=== PATIENT | male | born 1965 | race Caucasian/White ===

== ENCOUNTER 2019-10-25 00:20 | Day surgery (SDC) | payer OTHER, SELFPAY ==
[2019-09-28 08:37] VITALS: BP 158/90; PULSE 79; RESP 18; TEMP 36.8; O2SAT 98; BMI 38.9
[2019-10-25] VITALS (12 sets, daily range): BP systolic 104–171; BP diastolic 56–101; PULSE 71–84; RESP 13–20; TEMP 36.2–37.2; O2SAT 94–100; BMI 40.1
--- NOTE | ~2019-10-25 | XR_ITS ---
EXAMINATION: XR knee LT 2V DATE: 10/25/2019 11:16 INDICATION: Total left knee arthroplasty. Postop. TECHNIQUE: 2 views of left knee were obtained. COMPARISON: Left knee radiographs 11/19/2018 FINDINGS: There is a total left knee arthroplasty with patellar resurfacing in near-anatomic alignmen t. No fracture. There is gas in the knee joint and soft tissues, consistent with recent surgery. IMPRESSION: 1. Total left knee arthroplasty in near-anatomic alignment. Reviewed, dictated and finalized at location A. R [facility]
[2019-10-25] MEDS: LACTATED RINGERS 1,000 ML 30 ML IV CONT ×2 (06:45→11:03)
--- NOTE | 2019-10-25 07:28 | WPDANESEPPF ---
Anes - Initial Pre Proc Eval Procedure: Operation Date: 10/25/19 08:30 Proposed Procedures p Total Left Knee Arthroplasty(Left) - Ammon Becker MD Date/Time: 10/25/19 07:28 Surgeon: Ammon Becker MD Pre Op Diagnosis: Left Knee OA Patient Data Age: 54 Gender: M Height: 1.78 m Weight: 123.2 kg Last Vital Signs Temp 37.0 C 10/25/19 06:58 Pulse 71 10/25/19 06:58 Resp 20 10/25/19 06:58 BP 171/91 H 10/25/19 06:58 Pulse Ox 98 10/25/19 06:58 Allergies Allergy/AdvReac Type Severity Reaction Status Date / Time grass pollen Allergy Unknown Verified 10/25/19 06:54 mold Allergy Unknown Verified 10/25/19 06:54 Home Medications Medication Instructions Recorded Confirmed Type ibuprofen 400 mg PO Q6H PRN 09/28/19 10/25/19 History Patient hx anesthesia problems: none Family hx anesthesia problems: none [facility] Past Medical History Medical History (Updated 10/24/19 @ 11:28 by Irving Garza DO) Localized osteoarthritis of left knee Social History Social History (Updated 10/25/19 @ 07:28 by Irving Garza DO) Social History: 4-5 beers/day Smoking status: Never smoker Alcohol intake: current Gender identity (if verbalized by the patient): Male Anes - Eval Final PreProcedure Day of Procedure 10/25/19 07:28 Patient weight: obese Heart: regular rate and rhythm Lungs: clear to auscultation and normal air movement Airway: Mallampati scale class II Neurological: alert and oriented Last oral intake: >/= 8 hours ASA classification: III Emergent: no Anesthetic plan: proceed Anesthesia type and monitoring: general LMA and standard monitoring Informed Consent: The patient's anesthetic plan and its attendant risks and benefits were discussed with the patient/family/POA. Questions were solicited and answers provided to the satisfaction of the patient/family/POA.
--- NOTE | 2019-10-25 07:29 | WPDANESPNB ---
Anes - Peripheral Nerve Block Date/Time: 10/25/19 07:29 I have discussed with the patient/family/POA the placement of a peripheral nerve block for post-operative pain management, including associated risks, benefits, complications, and side effects. Alternative methods of post-operative analgesia were detailed. Questions were solicited and answers provided to the satisfaction of the patient/family/POA. Time-Out: A pre-procedural Time-Out was completed immediately before starting the procedure and confirmed: Patient Identification, Site, Procedure, Patient Position and the Availability of Requisite Equipment. Clinical Indications: Acute post-operative pain management requested by the operative surgeon. Nerve Block Insertion Note Anes-nerve block: adductor canal left Patient position: supine Skin prep: chlorhexidine Needle: 22 gauge, stimulating, insulated echogenic needle. Needle length: 80 mm Technique: ultrasound Injectate: bupivacaine 0.5% with epi 5 mcg/ml (30cc) Observations: tolerated well Complications: none Procedure start time:: 814 Procedure end time:: 817
--- NOTE | 2019-10-25 07:51 | WPDHPUPDATE1 ---
History and Physical Update Update Date/Time: 10/25/19 07:51 History and Physical has been reviewed, including an updated exam of the patient. There are NO changes in the patient's condition. Risks, benefits, and alternatives have been discussed and questions answered. Patient agrees to proceed with procedure.
[2019-10-25] MEDS: ceFAZolin 3 GM/D5W 100 ML 100 ML IVPB (08:24)
--- NOTE | 2019-10-25 11:30 | PM.PROC ---
Procedure Note - Detailed Date of procedure: 10/25/19 Pre-op diagnosis: Left Knee OA Post-op diagnosis: same Procedure performed: Total knee arthroplasty, left Implants: [place] [employer] size 6 press-fit femur, size 6 Tritanium press fit tibia, 9mm CS X3, polyethylene insert, 38 mm asymmetric Tritanium metal backed patellar component. Anesthesia: GETA and regional (subsartorial nerve block) Surgeon: Ammon Becker MD Estimated blood loss (mL): 200 Drains: No Complications: None Findings: Degenerative changes were diffuse. Bone quality was excellent. Typical femoral cuts were taken with 3? external rotation at 5? valgus. Flexion gap was slightly tight with rollback limited and a slight release of the PCL was performed off of the femur. OPERATIVE DETAILS: The patient was given a nerve block preoperatively, and then brought to the operating room. A general anesthetic was administered. The leg was prepped and draped in the usual sterile fashion. The limb was elevated and the tourniquet inflated to 300 mmHg during initial exposure. A longitudinal incision was created along the medial border of the patella and patellar tendon, and standard medial parapatellar approach to the knee was performed. A moderate medial release was taken. The knee was then flexed. The osteophytes were carefully removed. The intramedullary guide was placed in the femoral canal. The distal femoral resection was then taken with the oscillating saw. The collateral ligaments were carefully protected. The tibia was carefully exposed. The jig was applied, and the proximal tibia was resected at 3 degrees according to preoperative plan. The knee was balanced in extension. Appropriate releases were taken where needed. The anterior cruciate ligament and meniscal remnants were removed. The posterior cruciate ligament was preserved. The patella was measured. Patellar resection was carried out with the oscillating saw. The lug holes drilled. The femur was sized and rotation assessed using a combination of gap balancing, posterior referencing, and the AP axis. The 4 in 1 cutting block was used to finish the femoral cuts after equal gaps were assured. The lug holes were drilled. The osteophytes were carefully removed from the back of the knee. The knee was copiously irrigated periodically throughout the procedure. The meniscal remnants were removed. The spacer block was used to confirm equal flexion and extension gaps. Further releases were performed as needed. The tibia was sized and broached. The bony surfaces were prepared for cementing with pulsatile lavage. The real tibial component was impacted into position followed by press fitting the femoral component. The patella component was press-fit. Patellar tracking was carefully assessed. No additional releases were required. The wound was closed with #1 Vycril suture, #2 Quill suture, 0-Quill suture, and 2-0 Quill suture followed by Steri-Strips. A sterile bulky dressing was applied. Meticulous hemostasis was maintained throughout the procedure. [The aquamantis device was utilized.] There were no complications. The patient was extubated and brought to the recovery room in stable condition after the application of sterile dressing with Amaury bandage.
--- NOTE | 2019-10-25 12:08 | ADMGEN ---
This patient, Doni Estrada, was admitted to -. Patient/family oriented to hospital policies and general routines including ID bracelet, bed and alarms, visiting hours, pain management, procedures, bathroom and other care routines, personal items, smoking policy, room service/diet, and visiting hours. Valuables list has been completed. Information on how to activate the Rapid Response Team has been discussed. Patient/Family are encouraged to report perceived risks to care and to ask questions if they do not understand what they are told or what they should do.
[2019-10-25] MEDS: SODIUM CHLORIDE 0.9% IV 1,000 ML 125 ML IV CONT (12:40)
--- NOTE | 2019-10-25 12:57 | ADMGEN ---
This patient, Doni Estrada, was admitted to [facility] Room 311-01. Patient/family oriented to hospital policies and general routines including ID bracelet, bed and alarms, visiting hours, pain management, procedures, bathroom and other care routines, personal items, smoking policy, room service/diet, and visiting hours. Valuables list has been completed. Information on how to activate the Rapid Response Team has been discussed. Patient/Family are encouraged to report perceived risks to care and to ask questions if they do not understand what they are told or what they should do.
[2019-10-25] MEDS: ceFAZolin 2 GM/D5W 50 ML 2 GM/50 ML BAG IVPB (16:05)
[2019-10-25] MEDS: DOCUSATE SODIUM 100 MG CAPSULE PO (16:49)
[2019-10-25] MEDS: TRANEXAMIC ACID 1,000 MG in SODIUM CHLORIDE 0.9% IV 50 ML 360 MG IV PUSH (18:09)
[2019-10-25] MEDS: ASPIRIN 325 MG ENTERIC TABLET PO (20:39)
[2019-10-25] MEDS: FAMOTIDINE 20 MG TABLET PO (20:41)
[2019-10-26] MEDS: ceFAZolin 2 GM/D5W 50 ML 2 GM/50 ML BAG IVPB ×2 (00:07→08:36)
[2019-10-26 02:00] VITALS: BP 121/74; PULSE 82; RESP 20; TEMP 36.9; O2SAT 96
[2019-10-26 06:00] VITALS: BP 136/78; PULSE 72; RESP 20; TEMP 36.5; O2SAT 94
[2019-10-26 06:20] LABS: Basophils Percent Auto 0.1 % (0.2-1.2); Eosinophils Percent Auto 0.1 % (0-4.4); Hematocrit 39.1 % (42.0-52.0); Hemoglobin 13.1 g/dL (14.0-18.0); Immature Granulocyte Absolute 0.08 K/mm3 (0.00-0.031); Immature Granulocyte Percent A 0.5 % (0-0.5); Lymphocytes Absolute Auto 2.02 K/mm3 (0.9-3.2); Lymphocytes Percent Auto 13.6 % (18.3-44.2); Mean Corpuscular HGB Conc 33.5 g/dl (32-36); Mean Corpuscular Volume 92.4 fl (80-100); Mean Platelet Volume 11.4 fl (7.4-10.4); Monocytes Absolute Auto 1.2 K/mm3 (0.1-0.6); Monocytes Percent Auto 7.8 % (2.6-8.5); Neutrophils Absolute Auto 11.6 K/mm3 (1.3-6.7); Neutrophils Percent Auto 77.9 % (45.5-73.1); Platelet Count Result 182 k/mm3 (150-375); Red Blood Count 4.23 M/mm3 (4.6-6.20); Red Cell Distribution Width 12.4 % (11.5-14.5); White Blood Count 14.8 K/mm3 (4.5-10.0)
[2019-10-26 06:32] LABS: Blood Urea Nitrogen 25 mg/dL (9-20); Calcium 8.5 mg/dL (8.4-10.2); Carbon Dioxide 21 mmol/L (22-30); Chloride 98 mmol/L (98-107); Estimated CRCL calculation 113 ml/min; Estimated Glomerular Filt Rate > 60; Glucose 161 mg/dL (75-110); Sodium 131 mmol/L (137-145)
[2019-10-26 08:20] VITALS: BP 181/85; PULSE 84; RESP 16; TEMP 36.9; O2SAT 97
[2019-10-26] MEDS: FAMOTIDINE 20 MG TABLET PO (08:41)
[2019-10-26] MEDS: ASPIRIN 325 MG ENTERIC TABLET PO (08:41)
[2019-10-26] MEDS: DOCUSATE SODIUM 100 MG CAPSULE PO (08:42)
--- NOTE | 2019-10-26 11:03 | PM.DS ---
DS: Diagnosis Admitting Diagnosis Admitting Diagnosis: Knee OA. Discharge Diagnosis (1) Localized osteoarthritis of left knee: Code(s): M17.12 - Unilateral primary osteoarthritis, left knee Status: Acute DS: Summary Hospital Course Reason for hospitalization: Total knee arthroplasty. Hospital Course: Tolerated surgery well. Progressed appropriately with therapy. Status at Discharge Functional status at discharge: uses cane/walker Time Spent with Patient Time attestation: Total time spent providing and/or coordinating discharge services: Exam Const: General: no acute distress Resp: Effort & Inspection: normal respiratory effort Skin: Other: Wound healing well. Mepilex dressing intact. No hematoma or drainage. Neuro: Motor exam (neuro): 5/5 motor strength present throughout Sensory Exam: normal sensation Psych: Mental Status: mental status grossly normal Speech and movement: Normal speech and movement present DS: Data Data Completed and Pending Labs on day of discharge: Labs from last 24 hours 10/26/19 10/26/19 05:46 05:46 WBC 14.8 H RBC 4.23 L Hgb 13.1 L D Hct 39.1 L MCV 92.4 MCH 31.0 MCHC 33.5 RDW 12.4 Plt Count 182 MPV 11.4 H Immature Gran % (Auto) 0.5 Neut % (Auto) 77.9 H Lymph % (Auto) 13.6 L [place] % (Auto) 7.8 Eos % (Auto) 0.1 Baso % (Auto) 0.1 L Lymph # (Auto) 2.02 [place] # (Auto) 1.2 H Eos # (Auto) 0.0 Baso # (Auto) 0.0 Abs Immat Gran (auto) 0.08 H Absolute Neuts (auto) 11.6 H Absolute Nucleated RBC 0.0 Nucleated RBC % 0.0 Sodium 131 L Potassium 4.0 Chloride 98 Carbon Dioxide 21 L BUN 25 H Creatinine 0.90 Estim Creat Clear Calc 113 Estimated GFR > 60 Glucose 161 H Calcium 8.5 Discharge Plan Discharge Patient Disposition: Home, Self-Care Discharge Instructions: See instruction sheet. Patient Instructions: Pain Management (DC), Joint Replacement Surgery (DC) Follow-up/Referrals: Ammon Becker MD [Physician] - Discharge Medications: New aspirin [Enteric Coated Aspirin] 81 mg tablet,delayed release (DR/EC) 81 mg PO DAILY Qty: 28 RF: 0 oxycodone-acetaminophen 5-325 mg tablet 1 - 2 tablet PO Q4-6H MDD 8 tablets PRN (Reason: pain) Qty: 56 RF: 0 Continued ibuprofen 200 mg Tablet 400 mg PO Q6H PRN (Reason: Pain) RF: 0 Quality VTE Prophylaxis VTE prophylaxis: mechanical ordered (BRYNN vanessa and Leola)
== END 2019-10-26 11:36 | disposition home or self-care (01) ==
LOC: ANHSURGERY 06:16 → ANH3MEDSUR 12:22
PROVIDERS: PCP Internal Medicine; Visit Provider Orthopaedic Surgery
PROC: (CPT 27447; principal; 2019-10-25 08:30)
DX: M17.12 Unilateral primary osteoarthritis, left knee (principal); G89.18 Other acute postprocedural pain; E66.01 Morbid (severe) obesity due to excess calories; Z68.41 Body mass index [BMI] 40.0-44.9, adult
CPT/HCPCS: 27447; 64447; 36415; 73560; 80048; 85025; 86850; 86900; 86901; 97110; 97116; 97161; 97165; 97530; A9270; C1713; C1776; J0131; J0171; J0690; J1100; J1170; J1885; J2250; J2270; J2405; J2704; J2795; J3010; J7030; J7120

== ENCOUNTER 2019-11-08 07:50 | Outpatient (RCR) | payer OTHER, SELFPAY ==
--- NOTE | 2019-11-08 07:45 | PTOPEVAL ---
Thank you for referring this patient to [facility]. Please review, sign, date and return this plan of care [facility]. I agree with and certify that the following plan of care is medically necessary. Referring Physician Date Admitting Provider: Attending Provider: Ammon Becker MD Referring Provider: *PT Outpatient Evaluation Start: 11/08/19 07:11 Freq: Status: Active Protocol: Document 11/08/19 07:10 J (Rec: 11/08/19 07:37 [facility] [id number]) Therapy Assessment Status Assessment Status Assessment Status Evaluation Outpatient Past Medical History Neurological History Hx Neurological Disorders No Significant History Cardiovascular History Hx Cardiac Disorders No Significant History Respiratory History Hx Pneumonia Yes: 2017 Hx Other Respiratory Disorders Yes: ALLERGY TO GRASS AND MOLD Gastrointestinal History Hx Hernia Yes: 2 ABD. HERNIA SURG. Genitourinary History Hx Genitourinary Disorders No Significant History Musculoskeletal History Hx Arthritis Yes: LT KNEE PAIN Hx Orthopedic Surgery Yes: LT KNEE SCOPE X2, L TKA Hematological History Hx Hematological Disorders No Significant History Endocrine History Hx Endocrine Disorders No Significant History HEENT History Hx Other HEENT Disorders Yes Integumentary History Hx Skin Disorders No Significant History Reproductive History Hx Reproductive Disorders No Significant History Psychosocial History Hx Psychiatric Disorders No Significant History Pain History History of Any Previous or Ongoing No Significant History Instance of Pain Anesthesia History Hx Anesthesia Reactions No Significant History Evaluation Information Problem Diagnosis s/p L TKA Onset 10/25/19 Additional Evaluation Detail LEFS = 57% Subjective Information patient reports he had a L TKA Query Text:As Reported By Patient/ on 10/25/[address] Becker Family . he reports he has had no follow up with his MD yet, but reports not significant issues at home. he reports he has had 2 scopes on the L knee in the past. he reports prior to the total knee replacement , he had been having knee problems for about 32 years ( 1st scope). patient reports he does not ambulate stairs on a daily basis currently. he reports he has been doing
--- NOTE | 2019-12-15 08:34 | PTOPEVAL ---
Thank you for referring this patient to [facility]. Please review, sign, date and return this plan of care KRISTEL. I agree with and certify that the following plan of care is medically necessary. Referring Physician Date Admitting Provider: Attending Provider: Ammon Becker MD Referring Provider: *PT Outpatient Evaluation Start: 11/08/19 07:11 Freq: Status: Active Protocol: Document 12/15/19 07:00 [facility] (Rec: 12/15/19 08:34 [facility] [id number]) Therapy Assessment Status Assessment Status Assessment Status Re-evaluation Outpatient Past Medical History Neurological History Hx Neurological Disorders No Significant History Cardiovascular History Hx Cardiac Disorders No Significant History Respiratory History Hx Pneumonia Yes: 2017 Hx Other Respiratory Disorders Yes: ALLERGY TO GRASS AND MOLD Gastrointestinal History Hx Hernia Yes: 2 ABD. HERNIA SURG. Genitourinary History Hx Genitourinary Disorders No Significant History Musculoskeletal History Hx Arthritis Yes: LT KNEE PAIN Hx Orthopedic Surgery Yes: LT KNEE SCOPE X2, L TKA Hematological History Hx Hematological Disorders No Significant History Endocrine History Hx Endocrine Disorders No Significant History HEENT History Hx Other HEENT Disorders Yes Integumentary History Hx Skin Disorders No Significant History Reproductive History Hx Reproductive Disorders No Significant History Psychosocial History Hx Psychiatric Disorders No Significant History Pain History History of Any Previous or Ongoing No Significant History Instance of Pain Anesthesia History Hx Anesthesia Reactions No Significant History Evaluation Information Problem Diagnosis s/p L TKA Subjective Information patient reports he feels good Query Text:As Reported By Patient/ this date. he reports his L Family knee still feels tight, and has some pain along the bottom of the knee cap area. he reports no pain with walking, but does have pain with flexion to end rom of the L knee. Pain Assessment Timing of Pain Assessment Timing of Pain Assessment Assessment Pain Scale Pain Scale Used Numeric (1 - 10) Self Report Pain Assessment Left Knee(s) Reported Pain Level 0 Current Pain Intensity 0 Lowest Pain Intensity 0 Greatest Pain Intensity 6 Pain Aggravating Factors Other Pain Aggravating Factors Other Pain Aggravating Factors flexion to end rom Pain Score Lynn
--- NOTE | 2019-12-29 09:14 | PCPTNOTE ---
12/29/19- patient cancelled apt today secondary to having a final walk through of house and is finishing moving the rest of his stuff out prior to this. -.
== END 2020-01-17 15:51 | disposition home or self-care (01) ==
LOC: CHSPT 07:50
PROVIDERS: PCP Internal Medicine; Visit Provider Orthopaedic Surgery
DX: Z48.89 Encounter for other specified surgical aftercare (principal); Z96.652 Presence of left artificial knee joint
CPT/HCPCS: 97014; 97016; 97110; 97140; 97161; 97530; G0283

== ENCOUNTER 2020-02-25 08:47 | Emergency (ER) | payer OTHER, SELFPAY ==
[2020-02-25 09:01] VITALS: BP 113/76; PULSE 78; RESP 18; TEMP 36.8; O2SAT 97
--- NOTE | 2020-02-25 09:12 | ED.ALLEREA ---
HPI - Allergic Reaction General Chief complaint: Allergic Reaction Stated complaint: lips swelling allergic reaction Source: patient Mode of arrival: ambulatory Limitations: no limitations History of Present Illness HPI narrative: Upper lip began to swell last evening. The swelling slowly progressed throughout the evening. This AM both upper and lower lips are swollen. He denies swelling of the tongue, Wheezing, difficulty breathing, rash, lightheadedness, abdominal pain nausea or vomiting. He has a history of similar episodes throughout his life, the last 1 was about 15 years ago. after his 1st occurrence he had extensive allergy testing. He was found to be allergic to molds and grasses. Yesterday he spent his spent time in his barn where there is a lot of mold. See allergies listed below He has taken a total of 5 Benadryl 25 mg tablets since the onset. Related Data Allergies Allergy/AdvReac Type Severity Reaction Status Date / Time corn Allergy Severe Swelling Verified 01/13/20 14:19 lettuce Allergy Severe Swelling Verified 01/13/20 14:19 mold Allergy Severe Swelling Verified 01/13/20 14:19 orange Allergy Severe Swelling Verified 01/13/20 14:19 grass pollen Allergy Unknown Swelling Verified 01/13/20 14:19 mushroom Allergy Swelling Verified 01/13/20 14:19 Review of Systems Constitutional: Comments: no fevers or chills Respiratory: Comments: no cough PMFSH Past Medical History Medical History Aftercare following surgery Localized osteoarthritis of left knee Surgical History Surgical History Presence of left artificial knee joint Social History Social History (System 01/13/20 @ 14:19 by Amy Doyle) Social History: 4-5 beers/day Smoking status: Never smoker Alcohol intake: current Gender identity (if verbalized by the patient): Male Exam Const: General: healthy appearing and no acute distress HENMT: Other: no conjunctival injection. No facial swelling. Both upper and lower lips are swollen. Oropharynx without swelling or redness. Resp: Auscultation: clear to auscultation bilaterally Cardio: Rate: regular rate Rhythm: regular rhythm GI: Inspection: normal to inspection GI Palp: No abdominal tenderness Course Course Emergency Course: Vital Signs Vital signs: Vital Signs Temperature 36.8 C 02/25/20 09:01 Pulse Rate 78 02/25/20 09:01 Respiratory Rate 18 02/25/20 09:01 Blood Pressure 113/76 02/25/20 09:01 Pulse Oximetry 97 02/25/20 09:01 Temperature 36.6 C 02/25/20 09:24 Pulse Rate 85 02/25/20 09:24 Respiratory Rate 20 02/25/20 09:24 Blood Pressure 128/75 02/25/20 09:24 Pulse Oximetry 100 02/25/20 09:24 MDM - Allergic Reaction MDM Narrative Medical decision making narrative: this is a recurrent problem throughout his life. It is been worked up the angioedema is been attributed to allergies. No indication of anaphylaxis. Patient can safely be discharged home. He was given instructions on what warning signs to look for Differential Diagnosis Differential diagnosis: Likely anaphylaxis, allergic reaction and angioedema Discharge Plan Discharge Clinical Impression: Allergic angioedema Qualifiers: Encounter type: initial encounter Qualified Code(s): T78.3XXA - Angioneurotic edema, initial encounter Patient Disposition: Home, Self-Care Condition: Stable Instructions: Anaphylaxis (ED), Allergies (ED) Additional Instructions: Return if swelling of throat, trouble breathing, abdominal pain/vomiting/diarrhea, lightheadedness or rash. Take prednisone until gone. Take Zyrtec 10 mg twice daily Contact primary care doctor in 2 days if symptoms persist. Prescriptions: New prednisone 20 mg tablet 40 mg PO DAILY Qty: 10 RF: 0 Follow-up/Referrals: Lionel Clements MD [Primary Care Provider] - Time of Disposition
[2020-02-25 09:24] VITALS: BP 128/75; PULSE 85; RESP 20; TEMP 36.6; O2SAT 100
== END 2020-02-25 09:28 | disposition home or self-care (01) ==
PROVIDERS: Emergency Provider Family Medicine; PCP Internal Medicine
DX: T78.3XXA Angioneurotic edema, initial encounter (principal)
CPT/HCPCS: 99283

== ENCOUNTER 2025-03-02 12:41 | Emergency (ER) | payer OTHER, SELFPAY ==
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
[2025-03-02 13:15] VITALS: BP 174/105; PULSE 64; RESP 16; TEMP 36.4; O2SAT 100
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
[2025-03-02] MEDS: TETANUS,DIPHTHERIA,AC PERTUSSIS ADULT (0.5 ML) BOOSTRIX IM (15:24)
== END 2025-03-02 15:20 | disposition home or self-care (01) ==
PROVIDERS: Emergency Provider Physician Assistant; PCP Internal Medicine
DX: S00.81XA Abrasion of other part of head, initial encounter (principal); S46.912A Strain of unspecified muscle, fascia and tendon at shoulder and upper arm level, left arm, initial encounter; S20.212A Contusion of left front wall of thorax, initial encounter; Z23 Encounter for immunization; Z96.652 Presence of left artificial knee joint; V49.40XA Driver injured in collision with unspecified motor vehicles in traffic accident, initial encounter
CPT/HCPCS: 70450; 71250; 72125; 73030; 74176; 90471; 90715; 99284

== ENCOUNTER 2025-03-25 05:45 | Emergency (ER) | payer OTHER, SELFPAY ==
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
[2025-03-25 05:45] VITALS: BP 159/102; PULSE 84; RESP 20; TEMP 36.8; O2SAT 95
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
[2025-03-25 06:29] LABS: Basophils Absolute Auto 0.05 K/mm3 (0.00-0.10); Basophils Percent Auto 0.5 % (0.0-1.0); Eosinophils Absolute Auto 0.14 K/mm3 (0.02-0.50); Eosinophils Percent Auto 1.4 % (1.0-6.0); Hematocrit 46.7 % (40.0-54.0); Hemoglobin 15.6 g/dL (14.0-18.0); Immature Granulocyte Absolute 0.08 K/mm3 (0.00-0.00); Immature Granulocyte Percent A 0.8 % (0.0-0.0); Lymphocytes Absolute Auto 2.01 K/mm3 (1.10-4.50); Lymphocytes Percent Auto 19.6 % (18.0-42.0); Mean Corpuscular HGB Conc 33.4 g/dL (32-36); Mean Corpuscular Volume 92.8 fL (78.0-102.0); Mean Platelet Volume 10.3 fl (8.7-11.0); Monocytes Absolute Auto 0.88 K/mm3 (0.10-0.90); Monocytes Percent Auto 8.6 % (2.0-11.0); Neutrophils Absolute Auto 7.09 K/mm3 (1.70-7.20); Neutrophils Percent Auto 69.1 % (50.0-70.0); Platelet Count Result 225 K/mm3 (150-420); Red Blood Count 5.03 M/mm3 (4.70-6.10); Red Cell Distribution Width 12.4 % (11.6-14.4); White Blood Count 10.3 K/mm3 (4.8-10.8)
[2025-03-25 07:03] LABS: Alanine Aminotransferase 42 U/L (6-50); Albumin Level 3.7 g/dL (3.5-5.1); Alkaline Phosphatase 74 U/L (38-126); Anion Gap 4 mmol/L (4-12); Aspartate Amino Transferase 28 U/L (17-59); Bilirubin,Total 1.6 mg/dL (0.2-1.3); Blood Urea Nitrogen 17 mg/dL (9-20); Calcium 8.4 mg/dL (8.4-10.2); Carbon Dioxide 27 mmol/L (22-30); Chloride 105 mmol/L (98-107); Estimated CRCL calculation 103 ml/min; Estimated Glomerular Filt Rate > 60; Glucose 117 mg/dL (65-110); Osmolality Calculated 284 mOsm/kg (285-295); Potassium 4.1 mmol/L (3.4-5.0); Sodium 136 mmol/L (137-145); Total Protein 6.6 g/dL (6.3-8.2)
[2025-03-25 07:04] LABS: Lactic Acid Reflex 1.2 mmol/L (0.4-2.0)
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
[2025-03-25 07:45] VITALS: BP 161/103; PULSE 75; RESP 20; O2SAT 98
[2025-03-25 10:09] VITALS: BP 139/94; PULSE 77; RESP 16; TEMP 37.1; O2SAT 97
[2025-03-25] MEDS: PIPERACILLN/TAZ 3.375GM/NS50ML 3.375 GM/50 ML BAG IVPB (10:30)
--- NOTE | 2025-03-25 10:31 | PC.NURSE ---
delayed administration to antibiotic, and pt wanting to speak with erp before administration.
[2025-03-25 11:02] VITALS: BP 144/97; PULSE 73; RESP 18; O2SAT 98
== END 2025-03-25 11:02 | disposition home or self-care (01) ==
PROVIDERS: Internal Medicine Critical Care Medicine; Emergency Provider Emergency Medicine; PCP Internal Medicine
DX: L08.9 Local infection of the skin and subcutaneous tissue, unspecified (principal)
CPT/HCPCS: 36415; 70487; 80053; 83605; 85025; 96365; 99284; J2543; Q9967